=== PATIENT | male | born 2000 | race Caucasian/White ===

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

== ENCOUNTER 2024-09-28 09:13 | Emergency (ER) | payer MEDICARE, MEDICAID, SELFPAY ==
[2024-09-28] VITALS (10 sets, daily range): BP systolic 80–100; BP diastolic 47–72; PULSE 57–68; RESP 6; TEMP 36.4; O2SAT 83–97
--- NOTE | ~2024-09-28 | CT_ITS ---
EXAMINATION: CT brain wo con DATE: 09/28/2024 09:57 INDICATION: Seizure. Durant-Hirschhorn syndrome. TECHNIQUE: Computed tomography (CT) of the head was performed without intravenous contrast. The mA wa s adjusted according to patient size. Iterative reconstruction technique was employed. The dose-lengt h product was 605.33 mGy-cm. COMPARISON: Head CT 09/28/2005 FINDINGS: There is no intracranial hemorrhage, acute infarction, or abnormal intracranial mass lesion . The ventricles are normal in size. There is mucosal thickening in the paranasal sinuses. The orbits are normal. The mastoid air cells are normal. IMPRESSION: 1. Normal brain. Reviewed, dictated and finalized at location A. TRICIAN JOURNEYMAN WIREMAN IMPRESSION: 1. Normal brain.
--- NOTE | ~2024-09-28 | XR_ITS ---
EXAMINATION: XR chest 1V portable DATE: 09/28/2024 09:57 INDICATION: Seizures, vomiting and possible aspiration TECHNIQUE: frontal view of the chest was obtained. COMPARISON: Chest radiograph dated 10/01/2019 FINDINGS: Patient is rotated towards the right. Linear discoid atelectasis at the right midlung zone. Additiona l airspace opacities in the right lower lung zone which could represent additional atelectasis, aspir ation or pneumonia. No pulmonary edema, pleural effusion or pneumothorax. Heart size is normal conife r AP technique. Prominent gaseous distention of the stomach which occupies the majority of the visual ized upper abdomen. The ribs and clavicles are gracile. Median sternotomy wires. IMPRESSION: 1. Opacities in the right upper lung zone which could represent atelectasis, aspiration or pneumonia Reviewed, dictated and finalized at location A. ENTOLOGIST IMPRESSION: 1. Opacities in the right upper lung zone which could represent atelectasis, as piration or pneumonia
--- NOTE | 2024-09-28 09:16 | ED.SEIZURE ---
HPI - Seizure General Chief Complaint: Seizure Stated Complaint: seizure Source: EMS Mode of arrival: ambulatory Limitations: no limitations History of Present Illness HPI Narrative: 23-year-old male with a history of rogers-hischorn syndrome, nonverbal at baseline, history of seizures was brought in by EMS for recurrent seizures. The seizures started this morning and lasted for 3 minutes following which she received 10 mg of diazepam and 5 of Versed IV. Patient was noted to be seizing on arrival to the ED. patient is unresponsive to verbal commands. He is having intermittent clonic seizures with right gaze deviation. Discussed with [facility] ED and given 3 mg of IV Ativan along with 1500 mg of Keppra. after receiving the IV Ativan and Keppra the seizures have stopped. - Patient vomited initially at the start of seizures. The patient is oxygenating at 97% With an adequate respiratory rate. blood sugar was noted to be 104 and subsequently 160 complaint: seizure Onset (ago): minute(s) ( 20 minutes) Description of Episode: loss of consciousness and tonic-clonic movement Duration of episode: 25 -: minutes(s) Witnessed: Yes - by Bystander Trauma: No Seizure History: Yes Place: home Possible Precipitating Event: none Treatments prior to arrival: benzodiazepines and other ( Versed) Related Data Home Medications ?Medication ?Instructions ?Recorded ?Confirmed ?Last Taken ?Type clobazam 10 mg tablet mg 09/28/24 Unknown History clonidine HCl 0.1 mg tablet mg 09/28/24 Unknown History levetiracetam 500 mg tablet mg PO 09/28/24 Unknown History Allergies Allergy/AdvReac Type Severity Reaction Status Date / Time No Known Allergies Allergy Verified 09/28/24 11:08 Review of Systems Review of Systems: All systems reviewed & are unremarkable except as noted in HPI and below PMFSH Past Medical History Medical History (Updated 09/28/24 @ 11:11 by Dennis Ashton MD) Bilateral inguinal hernia History of repaired hypospadias Strabismus Hypospadias Atrial septal defect Seizures Rogers-Hirschhorn syndrome Surgical History Surgical History (Updated 10/01/19 @ 16:34 by Kana Staton) H/O bilateral inguinal hernia repair H/O congenital atrial septal defect (ASD) repair H/O eye surgery PRK surgery, strabismus correction Social History Social History (Updated 10/01/19 @ 16:46 by Kana Staton) Living arrangements: with family Gender identity (if verbalized by the patient): Male Exam Narrative: afebrile unresponsive to verbal commands. Const: General: ill appearing Nutritional Appearance: thin HENMT: Head: normal to inspection Face/Nose/Sinus: Normal external nose present Face and sinus: normal facial exam Mouth: Yes Normal oral and palatal mucosa present Eyes: Conjunctivae: conjunctivae normal Pupils: Equal, round and reactive pupils present ( Pupils are dilated and reacting to light.) Other: Initially gaze to the right Chest: Chest palpation & inspection: normal inspection of the chest Resp: Effort & Inspection: normal respiratory effort Auscultation: clear to auscultation bilaterally Cardio: Rate: regular rate Rhythm: regular rhythm GI: Auscultation: normal bowel sounds Skin: General skin exam: normal color Rashes: no rashes Wounds: no wounds Neuro: Other: unresponsive to verbal commands. Patient was initially noted to have bilateral clonic activity involving bilateral upper extremities. Patient was also noted to have tonic activity with gaze to the right. Extrem: General: normal to inspection Course Course Emergency Course: status epilepticus Vital Signs Vital signs: Vital Signs Pulse Rate 62 09/28/24 09:22 Pulse Oximetry 97 09/28/24 09:22 Temperature 36.4 C L 09/28/24 09:25 Pulse Rate 57 L 09/28/24 10:16 Respiratory Rate 6 L 09/28/24 09:25 Blood Pressure 100/72 09/28/24 10:16 Pulse Oximetry 92 09/28/24 10:16 Oxygen Delivery Non-Rebreather Mask 09/28/24 10:16 Oxygen Flow Rate 15 09/28/24 10:16 MDM - Seizure MDM Narrative Medical decision making narrative: status epilepticus Differential Diagnosis Differential diagnosis: Likely intractable seizure disorder Medical Records Attestation: I reviewed the patient's medical records. Lab Data 09/28/24 10:03 09/28/24 10:03 Labs: Lab Results 09/28/24 09/28/24 Range/Units 09:18 10:03 WBC 6.9 (4.8-10.8) K/mm3 RBC 4.50 L (4.70-6.10) M/mm3 Hgb 14.7 (14.0-18.0) g/dL Hct 43.6 (40.0-54.0) % MCV 96.9 (78.0-102.0) fL MCH 32.7 H (27.0-31.0) pg MCHC 33.7 (32-36) g/dL RDW 12.2 (11.6-14.4) % Plt Count 278 (150-420) K/mm3 MPV 11.1 H (8.7-11.0) fl Immature Gran % (Auto) 0.4 H (0.0-0.0) % Neut % (Auto) 79.6 H (50.0-70.0) % Lymph % (Auto) 13.3 L (18.0-42.0) % [place] % (Auto) 6.3 (2.0-11.0) % Eos % (Auto) 0.3 L (1.0-6.0) % Baso % (Auto) 0.1 (0.0-1.0) % Lymph # (Auto) 0.92 L (1.10-4.50) K/mm3 [place] # (Auto) 0.44 (0.10-0.90) K/mm3 Eos # (Auto) 0.02 (0.02-0.50) K/mm3 Baso # (Auto) 0.01 (0.00-0.10) K/mm3 Abs Immat Gran (auto) 0.03 H (0.00-0.00) K/mm3 Absolute Neuts (auto) 5.52 (1.70-7.20) K/mm3 Absolute Nucleated RBC 0.00 (0.00-0.00) K/mm3 Nucleated RBC % 0.0 (0-0.0) % Sodium 139 (136-145) mmol/L Potassium 3.8 (3.5-5.1) mmol/L Chloride 104 (98-108) mmol/L Carbon Dioxide 25 (21-32) mmol/L Anion Gap 10 (4-12) mmol/L BUN 20 H (7-18) mg/dL Creatinine 1.14 (0.70-1.30) mg/dL Estim Creat Clear Calc Not Reportable Estimated GFR > 60 (59 - ) Glucose 138 H (70-99) mg/dL POC Capillary Glucose 167 H (65-105) mg/dl Calculated Osmolality 292 (285-295) mOsm/kg Lactic Acid 3.5 H (0.4-2.0) mmol/L Calcium 8.5 (8.5-10.1) mg/dL Magnesium 1.7 L (1.8-2.4) mg/dL Total Bilirubin 0.4 (0.00-1.00) mg/dL AST 19 (15-37) U/L ALT 26 (16-63) U/L Alkaline Phosphatase 90 (46-116) U/L Total Protein 6.6 (6.4-8.2) g/dL Albumin 3.6 (3.4-5.0) g/dL Influenza A (RT-PCR) Negative (Negative) Influenza B (RT-PCR) Negative (Negative) RSV (RT-PCR) Negative (Negative) SARS-CoV-2 RNA (RT-PCR) Negative (Negative) Discharge Plan Discharge Clinical Impression: Status epilepticus Patient Disposition: Still a Patient Condition: Unstable Additional Instructions: [facility] Patient has been accepted by Patient Language: Yi Prescriptions: No Action clonidine HCl 0.1 mg tablet levetiracetam 500 mg tablet PO clobazam 10 mg tablet Follow-up/Referrals: UNKNOWN,DOCTOR [Non-Staff] - Time of Disposition: 11:11
[2024-09-28 09:20] LABS: Glucose Point of Care 167 mg/dl (65-105)
[2024-09-28] MEDS: MIDAZOLAM HCL (*CRX) 2 MG/2 ML VIAL 1 MG IV PUSH (09:26)
[2024-09-28] MEDS: levETIRAcetam 500MG/NACL 100ML 500 MG/100 ML BAG 400 MG ×3 (09:32→10:12)
[2024-09-28] MEDS: LORazepam INJ (*CRX) 2 MG/ML VIAL 3 MG IV PUSH (09:40)
--- OUTSIDE RECORDS SUMMARY | 2024-09-28 09:42 | XMS_ITS | Clinical Summary ---
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
--- OUTSIDE RECORDS SUMMARY | 2024-09-28 09:42 | XMS_ITS | Encounter Summary ---
Author Organization [facility] Address [address] [place] [address] Care Team Providers Care Staple Side Laster Name Role Phone Vineet Mitchell Primary Care Provider Lele Oquendo MD Unavailable Encounter Details Date Type Department Care Team (Late st Contact Info) Description 09/28/2024 Emergency [facility] [place] [address] Social History Tobacco Use Types Packs/Day Years Used Date Smoking Tobacco: Never Smokeless Tobacco: Never Alcohol Use Standard Drinks/Week Comments Defer 0 (1 standard drink = 0.6 oz pur e alcohol) PHQ-2 Answer Date Recorded PHQ-2 Total Score (If total score is 3 or more points, staff should administer the PHQ-9) 0 06/06/2024 Personal Safety Answer Date Recorded Have you ever been in or are you currently in a harmful physical or emotional relationship or is someone making you feel afraid or unsafe? Denies 05/13/2023 Sex and Gender Information Value Date Recorded Sex Assigned at Not on file Legal Sex Male 2:39 AM INCIDENT HANDLER Gender Identity Not on file Sexual Orientation Not on file documented as of this encounter Miscellaneous Notes * ED Pre-Arrival Note - Angle Zhou MD - 09/28/2024 9:27 AM INCIDENT HANDLER Pre-Arrival Note [place] 23 year old male, seizing Dr Hennessy Durant-hirschorn syndrome BIBEMS with 3 min seizure Having ongoing seizure at the OSH Generalized and rightward gaze Getting Keppra 500 mg -- recommend upping to 1500 mg Got ativan 1 mg Weight is 30 kg Seizing about 20-25 minutes; consistently for 10-15 minutes Family is declining additional work up. Is flying him here Requested that the OSH MD call back after Jose Alfredogina if he is still seizing. Neuro is getting on line to talk with the OSH MD as well. Angle Zhou MD DENT HANDLER documented in this encounter Plan of Treatment Not on file documented as of this encounter Visit Diagnoses Not on filedocumented in this encounter Care Teams Staple Side Laster Relationship Specialty Start Date End Date Vineet Mitchell PA 2 [facility] [address] [address] PCP - General Internal Medicine 12/15/22 Lele Oquendo MD [address] [facility] [address] [place] [address] Consulting Physician Neurology 06/06/24 documented as of this encounter
--- OUTSIDE RECORDS SUMMARY | 2024-09-28 09:42 | XMS_ITS | Encounter Summary ---
Author Organization [facility] Address [address] [place] [address] Phone Care Team Providers Care Soil Specialist Name Role Phone Vineet Mitchell Primary Care Provider Lele Oquendo MD Unavailable Reason for Visit * Reason Onset Date Comments Med Management 09/27/2024 Med Refill 09/27/2024 Encounter Details Date Type Department Care Team (Late st Contact Info) Description 09/27/2024 Telephone [facility] Epilepsy [address] [facility] [address] [place] [address] [place] [address] Lele Oquendo MD [address] [facility] [address] [place] [address] Med Management; Med Refill Social History Tobacco Use Types Packs/Day Years [...] on file Legal Sex Male 2:39 AM TRAVELING NURSE Gender Identity Not on file Sexual Orientation Not on file documented as of this encounter Miscellaneous Notes * Telephone Encounter - Shauna Melara CMA - 09/27/2024 1:[address] Moon Patients father, Sunil phoned regarding prescription refill request that previously was prescribed by Dr Anderson. Clonidine 0.1mg 1 1/2 tablets QHS Patient father advised to contact primary care for Senokot 8.6mg 2 tablets BID to request refill. Please advise on Clonidine. Should patient have PCP order as well? Shauna Ashraf ELING NURSE * Telephone Encounter - Ameena Thomas RN - 09/27/2024 1:34 PM TRAVELING NURSE Sunil LVM asking for refills on Timbo's prescriptions. Details of prescriptions and pharmacy were not left on VM. ELING NURSE documented in this encounter Plan of Treatment Not on file documented as of this encounter Visit Diagnoses Not on filedocumented in this encounter Care Teams Soil Specialist Relationship Specialty Start Date End Date Vineet Mitchell PA [address] [facility] [address] [place] [id number] PCP - General Internal Medicine 12/15/22 Lele Oquendo MD 1 [facility] [address] [place] [address] Consulting Physician Neurology 06/06/24 documented as of this encounter
--- OUTSIDE RECORDS SUMMARY | 2024-09-28 09:42 | XMS_ITS | Encounter Summary ---
Author Organization [facility] Address [address] [facility] [address] [place] [address] Phone Care Team Providers Care Shipyard Laborer Name Role Phone Vineet Mitchell Primary Care Provider Lele Oquendo MD Unavailable Encounter Details Date Type Department Care Team (Late st Contact Info) Description 09/26/2024 Telephone [facility] Pediatric Neurology [address] [facility] [address] [place] [phone] Aida Anderson MD PhD [address] [facility] [phone] [place], [place] [id number] Social History Tobacco Use Types Packs/Day Years [...] on file Legal Sex Male 2:39 AM LAUNDRY FOLDER Gender Identity Not on file Sexual Orientation Not on file documented as of this encounter Miscellaneous Notes * Telephone Encounter - Ellie Evans CMA - 09/26/2024 3:24 PM LAUNDRY FOLDER Scheduling team- Please schedule follow up appointment. Last seen 05/13/23- no refills until appointment is scheduled Ellie Ashraf DRY FOLDER documented in this encounter Plan of Treatment Not on file documented as of this encounter Visit Diagnoses Not on filedocumented in this encounter Care Teams Shipyard Laborer Relationship Specialty Start Date End Date Vineet Mitchell PA [address] [facility] [address] [place] [address] PCP - General Internal Medicine 12/15/22 Lele Oquendo MD [address] [facility] [address] [place] [address] Consulting Physician Neurology 06/06/24 documented as of this encounter
--- OUTSIDE RECORDS SUMMARY | 2024-09-28 09:42 | XMS_ITS | Clinical Summary ---
Author Organization [facility] Address [address] [place] [address] Care Team Providers Care Senior It Assistant Name Role Phone Paula Vineet HUDSON Primary Care Provider Lele Oquendo MD Unavailable Allergies Active Allergy Reactions Criticality Noted Date Comments Banana Vomiting Low Latex Rash Medium Morphine Sulfamethoxazole-Trimethoprim Other (See comments) Low Reaction: Medications cetirizine (ZyrTEC) 10 mg tablet Take 1 tablet (10 mg total) by mouth daily as needed for allergies 3 Active omeprazole (PriLOSEC) 20 mg capsule Take 1 capsule (20 mg total) by mouth daily 30 capsule 3 Active senna (SENOKOT) 8.6 mg tabletIndications: 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 (HCC) TAKE THREE TABLETS BY MOUTH TWICE A DAY 180 tablet 4 Active triamcinolone (KENALOG) 0.1 % cream Apply topically 2 (two) times a day As needed for itchy rash 60 g 1 4 Active cloBAZam (ONFI) 10 mg tablet TAKE HALF A TABLET BY MOUTH TWICE A DAY 90 tablet 1 4 Active cloNIDine (CATAPRES) 0.1 mg tablet TAKE ONE AND A HALF TABLETS BY MOUTH EVERY EVENING 45 tablet 4 Active clonazePAM (KlonoPIN) 0.[address] ONE TABLET ON THE TONGUE AND LET DISSOLVE TWICE A DAY NEEDED FOR SEIZURES 15 tablet 1 5 Active Active Problems Problem Noted Date Diagnosed Date Full incontinence-feces 11/18/2023 Continuous leakage of urine 11/18/2023 Intrinsic eczema 09/18/2023 Assessment & Plan (09/18/2023 1:04 PM LAND USE PLANNER): Chronic problem- Continue Vaseline therapy Recommend cotton clothing or cool wicking fabric Recommend Aveeno gel and Aveeno anti itch cream prn Encouraged to avoid harsh soaps, make sure skin is dry after bathing, avoid excessive hot water to skin Continue to monitor Plan to consult dermatology if no improvement Status epilepticus ([facility]) 07/25/2023 Assessment & Plan (09/18/2023 12:43 PM LAND USE PLANNER): Chronic problem-this is being managed by Neurology Follow-up with Dr. Royal as scheduled Continue current medication regimen as directed by Dr. 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 Royal as scheduled Continue current medication regimen as directed by Dr. 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 Royal as scheduled Continue current medication regimen as directed by Dr. Royal Ordered home health PT to eval and treat for ankle weakness and lower leg muscle tension Resolved Problems Problem Noted Date Diagnosed Date Resolved Date Encounters for administrative purpose 09/18/2023 01/29/2024 Assessment & Plan (09/18/2023 1:00 PM LAND USE PLANNER): Guardianship paperwork, handicap paperwork completed this visit Face to face completed for patient HH PT request as recommended by patient neurologist Acute respiratory failure 07/25/2023 Seizure 04/04/2023 01/29/2024 Assessment & Plan (09/18/2023 12:46 PM LAND USE PLANNER): Chronic problem-currently stable This is being managed by neurologist Continue Keppra 1500 mg b.i.d., diazepam 10 mg spray-use as directed Follow-up with neurologist as scheduled Continue to monitor Assessment & Plan (04/04/2023 10:29 PM CDT): A 22yM with a PMHx of Durant-hirschhorn (abnormal fascies, growth delay, intellectual disability, hypotonia, seizure), seizures on keppra 1250mg BID, ASD s/p repair, hypospadias, s/p repair, and bilateral inguinal hernias s/p repair who presents to the ED for status epilepticus. Out camping with family, 1x emesis post meal. Right hand -> Arm shaking with gaze deviation up. Progressed to generalized shaking. Requiring 2x IN Diazepam and 1x IV versed. Total time 1 hr. Physical exam on admission consistent with his baseline, non verbal, not interactive no focal deficits noticed. AF on admission but febrile on floor with VSS. CMP normal, CBC with a mild leukocytosis of 15.8. RVP negative. CXR wnl, no signs of aspiration. AXR significant for a stool ball. VBG 7.31/55/52. DDx: Provoked vs Unprovoked Focal seizure with secondary generalization. At this time with the patients fever and emesis he likely has an underlying viral infection the is provoking. Of note he was agitated in the ED and noted to respond well to zofran, concerning for underlying nausea. At this time the patient is clinically stable, tolerating soft foods. Plan: - Continue home Clonidine 0.15mg Nightly and Zyrtec Daily - Keppra 1250 BID - 1x Klonopin 0.5mg Overnight before transfer from ED - Ativan and Diastat for >5min seizures; Seizure precautions - Mechanical soft diet; POAL - Tylenol for Fevers PRN - Miralax daily for stool ball; monitor stools - Consider EEG/MRI at some point given focality of the seizures - Potential 2nd line med given 2 episodes of status 12/2022 and now 03/2023 Steroid-modified tinea infection 12/05/2015 06/06/2024 Cough 09/12/2015 10/24/2019 Encounters Date Type Department Care Team Description 09/28/2024 Telephone [facility] Pediatric Neurology [facility] [address] [place] [address] Abida Ruff MD 09/28/2024 Emergency [facility] [place] [address] 09/27/2024 Telephone [facility] Epilepsy [address] [facility] Advanced Medicine 6th [place] [address] [place] [address] Lele Oquendo MD Med Management; Med Refill 09/26/2024 Telephone [facility] Pediatric Neurology [facility] [address] [facility] [place] [address] Aida Anderson MD PhD 07/29/2024 Telephone [facility] Primary Care at [address] [place] [address] Vineet Mitchell PA from Last 3 Months Immunizations Name Administration Dates Next Due DT 05/11/2006,05/11/2002 DTaP, Unspecified 05/12/2001,03/03/2001,12/27/19 Hep A, Pediatric 04/12/2018,04/09/2017 Hep B, Adolescent or Pediatric 2000 Hep B, Unspecified 09/14/2001,2000 HiB 02/09/2002, 1,03/03/2001,12/26 IPV 05/11/2006, 2,03/03/2001,12/26 Influenza, Trivalent, Preser vative Free, Intramuscular 06/14/2013,05/29/2010 Influenza, Unspecified 06/06/2024(Deferr ed: Patient Refused),09/18/2023(Deferred: Patient Refused),07/06/2002 MMR 12/12/2005 MMRV 10/02/2006 Meningococcal Conjugate (Menveo) 04/09/2017,03/2012 Pneumococcal, Unspecified 03/03/2001 Tdap 02/10/2011 Varicella 11/03/2001 Surgical History Surgery Date Site/Laterality Comments ASD REPAIR HYPOSPADIAS CORRECTION INGUINAL HERNIA REPAIR STRABISMUS SURGERY Medical History Medical History Date Comments Seizures (HCC) follows neurolog y Nonverbal Durant-Hirschhorn syndrome Family History Relation Name Status Comments Father Alive Mother Alive Social History Tobacco Use Types Packs/Day Years Used Date Smoking Tobacco: Never Smokeless Tobacco: Never Tobacco Cessation:Counseling Given: Not Answered Alcohol Use Standard Drinks/Week Comments Defer 0 [...] on file Legal Sex Male 2:39 AM LAND USE PLANNER Gender Identity Not on file Sexual Orientation Not on file Obstetrics History Last Filed Vital Signs Vital Sign Reading Time Taken Comments Blood Pressure 92/52 06/06/2024 2:47 PM CDT kenneth ble Pulse 75 12/17/2023 4:21 PM CDT Temperature 37.1 ??C (98.7 ??F) 06/06/2024 2:47 PM CD T Respiratory Rate 18 12/17/2023 4:21 PM CDT Oxygen Saturation 99% 12/17/2023 4:21 PM CDT Inhaled Oxygen Concentration - - Weight 26.7 kg (58 lb 12.8 oz) 06/06/2024 2:47 P M CDT Height 134.5 cm (4' 4.95 ) 06/06/2024 2:47 PM CD T Body Mass Index 14.75 06/06/2024 2:47 PM CDT Plan of Treatment Health Maintenance Due Date Last Done Comments Hepatitis C Screening 2000 HPV Vaccines (1 - Male 3-dose series) 10/31/2015 Meningococcal B Vaccine (1 of 2 - Patient Seeks Protection) 2016 DTaP/Tdap/Td Vaccine (7 - Td or Tdap) 02/10/2021 02/10/2011, 05/11/2006, 05/11/2002, Additional history exists Influenza Vaccine (#1) 2024 3, 05/29/2010, 07/06/2002 Depression Screening 06/06/2025 06/06/2024, 09/18/2023, 12/15/2022 Regular Well Visit/Exam 18-64 06/06/2025 06/06/2024 Pneumococcal vaccine <65 Aged Out 03/03/2001 No longer eligible based on patient's age to complete this topic Varicella Vaccines Completed 10/02/2006, 11/03/2001 Insurance [employer] MEDICARE MEDICARE [facility] Advance Directives For more information, please contact: [phone] * Full Code (Latest Code Status on File) Date Activated Date Inactivated Comments 07/25/2023 1:07 PM 07/26/2023 4:37 PM * Full Code Date Activated Date Inactivated Comments 04/04/2023 9:13 PM 04/05/2023 7:07 PM Care Teams Senior It Assistant Relationship Specialty Start Date End Date Vineet Mitchell PA [address] [place] [address] PCP - General Internal Medicine 12/15/22 Lele Oquendo MD [address] [facility] [address] [place] [address] Consulting Physician Neurology 06/06/24
--- OUTSIDE RECORDS SUMMARY | 2024-09-28 09:43 | XMS_ITS | Encounter Summary ---
Author Organization [facility] Address [address] [facility] [address] [place] [address] Phone Care Team Providers Care Enterprise Security Architect Name Role Phone Vineet Mitchell Primary Care Provider Lele Oquendo MD Unavailable Encounter Details Date Type Department Care Team (Late st Contact Info) Description 09/28/2024 Telephone [facility] Pediatric Neurology [address] [place] [address] Abida Ruff MD [address] [facility] [phone] [place], [place] [id number] Social History Tobacco Use Types Packs/Day Years [...] on file Legal Sex Male 2:39 AM HEEL TRIMMER Gender Identity Not on file Sexual Orientation Not on file documented as of this encounter Plan of Treatment Not on file documented as of this encounter Visit Diagnoses Not on filedocumented in this encounter Care Teams Enterprise Security Architect Relationship Specialty Start Date End Date Vineet Mitchell PA [address] [place] [address] PCP - General Internal Medicine 12/15/22 Lele Oquendo MD [address] [facility] [address] [place] [address] Consulting Physician Neurology 06/06/24 documented as of this encounter
--- OUTSIDE RECORDS SUMMARY | 2024-09-28 09:43 | XMS_ITS | Referral Summary ---
Author Organization [facility] Address [address] [place] [address] Care Team Providers Care Census Taker Name Role Phone Vineet Mitchell Primary Care Provider Lele Oquendo MD Unavailable Encounters Date Type Department Care Team Description 09/28/2024 Telephone [facility] Pediatric Neurology [facility] [address] [place] [address] Abida Ruff MD 09/28/[address] [facility] [place] [address] 09/27/2024 Telephone [facility] Epilepsy [address] [facility] Advanced Medicine 6th [place] [address] [place] [address] Lele Oquendo MD Med Management; Med Refill 09/26/2024 Telephone [facility] Pediatric Neurology [facility] [address] [place] [address] Aida Anderson MD PhD 07/29/2024 Telephone [facility] Medical Group Primary Care at [address] [place] [address] Vineet Mitchell PA from Last 3 Months Allergies Active Allergy Reactions Criticality Noted Date [...] 09/18/2023 Assessment & Plan (09/18/2023 1:04 PM PURCHASING COORDINATOR): Chronic problem- Continue Vaseline therapy Recommend cotton clothing or cool wicking fabric Recommend Aveeno gel and Aveeno anti itch cream prn Encouraged to avoid harsh soaps, make sure skin is dry after bathing, avoid excessive hot water to skin Continue to monitor Plan to consult dermatology if no improvement Status epilepticus (CMS/HCC) 07/25/2023 Assessment & Plan (09/18/2023 12:43 PM PURCHASING COORDINATOR): Chronic problem-this is being managed by Neurology Follow-up with Dr. Royal as scheduled Continue current medication regimen as directed by Dr. 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 Royal as scheduled Continue current medication regimen as directed by Dr. Royal Ordered home health PT to eval and treat for ankle weakness and lower leg muscle tension Resolved Problems Problem Noted Date Diagnosed Date Resolved Date Encounters for administrative purpose 09/18/2023 01/29/2024 Assessment & Plan (09/18/2023 1:00 PM PURCHASING COORDINATOR): Guardianship paperwork, handicap paperwork completed this visit Face to face completed for patient HH PT request as recommended by patient neurologist Acute respiratory failure 07/25/2023 Seizure 04/04/2023 01/29/2024 Assessment & Plan (09/18/2023 12:46 PM PURCHASING COORDINATOR): Chronic problem-currently stable This is being managed [...] tinea infection 12/05/2015 06/06/2024 Cough 09/12/2015 10/24/2019 Immunizations Name Administration Dates Next Due DT 05/11/2006,05/11/2002 DTaP, Unspecified 05/12/2001,03/03/2001,12/27/19 Hep A, Pediatric 04/12/2018,04/09/2017 Hep B, Adolescent or Pediatric 2000 Hep B, Unspecified 09/14/2001,2000 HiB 02/09/2002, 1,03/03/2001,12/26 IPV 05/11/2006, 2,03/03/2001,12/26 Influenza, Trivalent, Preser vative Free, Intramuscular 06/14/2013,05/29/2010 Influenza, Unspecified 06/06/2024(Deferr ed: Patient Refused),09/18/2023(Deferred: Patient Refused),07/06/2002 MMR 12/12/2005 MMRV 10/02/2006 Meningococcal Conjugate (Menveo) 04/09/2017,03/2012 Pneumococcal, Unspecified 03/03/2001 Tdap 02/10/2011 Varicella 11/03/2001 Social History Tobacco Use Types Packs/Day Years [...] on file Legal Sex Male 2:39 AM PURCHASING COORDINATOR Gender Identity Not on file Sexual Orientation Not on file Last Filed Vital Signs Vital Sign Reading [...] 06/06/2024 2:47 PM CDT Plan of Treatment Not on file Insurance [facility] MEDICARE MEDICARE [employer] Advance Directives For more information, please contact: [phone] * Full Code (Latest Code Status on File) Date Activated Date Inactivated Comments 07/25/2023 1:07 PM 07/26/2023 4:37 PM * Full Code Date Activated Date Inactivated Comments 04/04/2023 9:13 PM 04/05/2023 7:07 PM Care Teams Census Taker Relationship Specialty Start Date End Date Vineet Mithcell PA [address] [place] [address] PCP - General Internal Medicine 12/15/22 Lele Oquendo MD [address] [facility] [address] [place] [address] Consulting Physician Neurology 06/06/24
[2024-09-28 10:09] LABS: Basophils Absolute Auto 0.01 K/mm3 (0.00-0.10); Basophils Percent Auto 0.1 % (0.0-1.0); Eosinophils Absolute Auto 0.02 K/mm3 (0.02-0.50); Eosinophils Percent Auto 0.3 % (1.0-6.0); Hematocrit 43.6 % (40.0-54.0); Hemoglobin 14.7 g/dL (14.0-18.0); Immature Granulocyte Absolute 0.03 K/mm3 (0.00-0.00); Immature Granulocyte Percent A 0.4 % (0.0-0.0); Lymphocytes Absolute Auto 0.92 K/mm3 (1.10-4.50); Lymphocytes Percent Auto 13.3 % (18.0-42.0); Mean Corpuscular HGB Conc 33.7 g/dL (32-36); Mean Corpuscular Hemoglobin 32.7 pg (27.0-31.0); Mean Corpuscular Volume 96.9 fL (78.0-102.0); Mean Platelet Volume 11.1 fl (8.7-11.0); Monocytes Absolute Auto 0.44 K/mm3 (0.10-0.90); Monocytes Percent Auto 6.3 % (2.0-11.0); Neutrophils Absolute Auto 5.52 K/mm3 (1.70-7.20); Neutrophils Percent Auto 79.6 % (50.0-70.0); Platelet Count Result 278 K/mm3 (150-420); Red Cell Distribution Width 12.2 % (11.6-14.4); White Blood Count 6.9 K/mm3 (4.8-10.8)
[2024-09-28 10:23] LABS: Alanine Aminotransferase 26 U/L (16-63); Albumin Level 3.6 g/dL (3.4-5.0); Alkaline Phosphatase 90 U/L (46-116); Anion Gap 10 mmol/L (4-12); Aspartate Amino Transferase 19 U/L (15-37); Bilirubin,Total 0.4 mg/dL (0.00-1.00); Blood Urea Nitrogen 20 mg/dL (7-18); Calcium 8.5 mg/dL (8.5-10.1); Carbon Dioxide 25 mmol/L (21-32); Chloride 104 mmol/L (98-108); Estimated Glomerular Filt Rate > 60; Glucose 138 mg/dL (70-99); Osmolality Calculated 292 mOsm/kg (285-295); Potassium 3.8 mmol/L (3.5-5.1); Sodium 139 mmol/L (136-145); Total Protein 6.6 g/dL (6.4-8.2)
[2024-09-28 10:25] LABS: Magnesium 1.7 mg/dL (1.8-2.4)
[2024-09-28 10:26] LABS: Lactic Acid Reflex 3.5 mmol/L (0.4-2.0)
--- OUTSIDE RECORDS SUMMARY | 2024-09-28 10:29 | XMS_ITS | Clinical Summary ---
Author Organization [facility] Address [address] [place] [address] Phone Care Team Providers Care Lead Athlete Name Role Phone Unavailable Primary Care Provider Unavailabl e Social History Tobacco Use Types Packs/Day Years Used Date Smoking Tobacco: Never Assessed Sex and Gender Information Value Date Recorded Sex Assigned at Not on file Legal Sex Male 5:18 AM MANAGER OCCUPATIONAL Gender Identity Not on file Sexual Orientation Not on file Plan of Treatment Health Maintenance Due Date Last Done Comments HPV VACCINES (1 - Male 3-dose series) 10/31/2015 DTAP/TDAP/TD VACCINES (1 - Tdap) 10/31/2019 HEPATITIS B VACCINES (1 of 3 - 19+ 3-dose series) 04/2020 INFLUENZA VACCINE (#1) 2024 06/14/2013 Insurance [employer] [place]
--- OUTSIDE RECORDS SUMMARY | 2024-09-28 10:29 | XMS_ITS | Encounter Summary ---
Author Organization [facility] Address [address] [place] [address] Phone Care Team Providers Care Technical Clerk Name Role Phone Vineet Mitchell Primary Care Provider Lele Oquendo MD Unavailable Reason for Visit * Reason Onset Date Comments Med Management 09/27/2024 Med Refill 09/27/2024 Encounter Details Date Type Department Care Team (Late st Contact Info) Description 09/27/2024 Telephone [facility] Epilepsy [address] [facility] 6th [place] [address] [place] [address] Lele Oqeundo MD [address] [facility] [address] [place] [address] Med Management; Med Refill Social [...] on file Legal Sex Male 2:39 AM MIDDLEWARE SYSTEMS ARCHITECT Gender Identity Not on file Sexual Orientation [...] have PCP order as well? Shauna Ashraf LEWARE SYSTEMS ARCHITECT * Telephone Encounter - Ameena Thomas RN - 09/27/2024 1:34 PM MIDDLEWARE SYSTEMS ARCHITECT Sunil LVM asking for refills on Timbo's prescriptions. Details of prescriptions and pharmacy were not left on VM. LEWARE SYSTEMS ARCHITECT documented in this encounter Plan of Treatment Not on file documented as of this encounter Visit Diagnoses Not on filedocumented in this encounter Care Teams Technical Clerk Relationship Specialty Start Date End Date Vineet Mitchell PA [address] [facility] [address] [place] [address] PCP - General Internal Medicine 12/15/22 Lele Oquendo MD [address] [facility] [address] [place] [address] Consulting Physician Neurology 06/06/24 documented as of this encounter
--- OUTSIDE RECORDS SUMMARY | 2024-09-28 10:29 | XMS_ITS | Encounter Summary ---
Author Organization [facility] Address [address] [facility] [address] [place] [address] Phone Care Team Providers Care Lot Associate Name Role Phone Vineet Mitchell Primary Care Provider Lele Oquendo MD Unavailable Encounter Details Date Type Department Care Team (Late st Contact Info) Description 09/26/2024 Telephone [facility] Pediatric Neurology [address] [facility] [address] [place] [address] Aida Anderson MD PhD [address] [facility] [phone] [place], [place] [phone] Social History Tobacco Use Types Packs/Day Years [...] on file Legal Sex Male 2:39 AM ENVIRONMENTAL SCIENTISTS Gender Identity Not on file Sexual Orientation Not on file documented as of this encounter Miscellaneous Notes * Telephone Encounter - Ellie Evans CMA - 09/28/2024 10:24 AM ENVIRONMENTAL SCIENTISTS Per scheduling team: Juanis, I spoke with dad and pt no longer sees Monica, he sees Red. Thank you. RONMENTAL SCIENTISTS * Telephone Encounter - Ellie Evans CMA - 09/26/2024 3:24 PM ENVIRONMENTAL SCIENTISTS Scheduling team- Please schedule follow up appointment. Last seen 05/13/23- no refills until appointment is scheduled Ellie Ashraf RONMENTAL SCIENTISTS documented in this encounter Plan of Treatment Not on file documented as of this encounter Visit Diagnoses Not on filedocumented in this encounter Care Teams Lot Associate Relationship Specialty Start Date End Date Vineet Mitchell PA [address] [facility] [place] [address] PCP - General Internal Medicine 12/15/22 Lele Oquendo MD [address] [facility] [address] [place] [address] Consulting Physician Neurology 06/06/24 documented as of this encounter
--- OUTSIDE RECORDS SUMMARY | 2024-09-28 10:29 | XMS_ITS | Encounter Summary ---
Author Organization [facility] Address [address] [facility] [address] [place] [address] Phone Care Team Providers Care Sales Representative Cash Registers Name Role Phone Vineet Mitchell Primary Care Provider Lele Oquendo MD Unavailable Encounter Details Date Type Department Care Team (Late st Contact Info) Description 09/28/2024 Telephone [facility] Pediatric Neurology [address] [facility] [address] [place] [phone] Abida Ruff MD [address] [facility] [phone] [place], [place] [id number] Social History Tobacco Use Types Packs/Day Years [...] on file Legal Sex Male 2:39 AM FUNERAL LIMOUSINE DRIVER Gender Identity Not on file Sexual Orientation Not on file documented as of this encounter Miscellaneous Notes * Telephone Encounter - Abida Ruff MD - 09/28/2024 9:40 AM FUNERAL LIMOUSINE DRIVER Telephone Note - [facility] Time of phone conversation: 09/28/24 9:40 AM Call from: Dr. Dennis Ashton Brief HPI: Timbo Arguello is a 23 y.o. male with history of Durant-Hirschhorn Syndrome and associated epilepsy, repaired ASD, intellectual disability, and non verbal communication presenting with status epilepsticus for at least 25 minutes at the outside hospital. Gave valtoco and versed. Gave 1mg ativan. Continued to have seizure activity. Giving another 3mg. Gave 1500mg keppra. Current weight 26.7 kg. Neuro meds: Current Outpatient Medications: cetirizine (ZyrTEC) 10 mg tablet, Take 1 tablet (10 mg total) by mouth daily as needed for allergies, Disp: , Rfl: cloBAZam (ONFI) 10 mg tablet, TAKE HALF A TABLET BY MOUTH TWICE A DAY, Disp: 90 tablet, Rfl: 1 clonazePAM (KlonoPIN) 0.25 mg disintegrating tablet, PLACE ONE TABLET ON THE TONGUE AND LET DISSOLVE TWICE A DAY NEEDED FOR SEIZURES, Disp: 15 tablet, Rfl: 1 cloNIDine (CATAPRES) 0.1 mg tablet, TAKE ONE AND A HALF TABLETS BY MOUTH EVERY EVENING, Disp: 45 tablet, Rfl: 0 diazePAM (Valtoco) 10 mg/spray (0.1 mL) spray,non-aerosol, Administer 10 mg into one nostril once as needed (Administer at onset of seizure. Second dose can be given at 5 minutes if seizure has not resolved.) for up to 1 dose, Disp: 2 each, Rfl: 2 levETIRAcetam (KEPPRA) 500 mg tablet, TAKE THREE TABLETS BY MOUTH TWICE A DAY, Disp: 180 tablet, Rfl: 0 omeprazole (PriLOSEC) 20 mg capsule, Take 1 capsule (20 mg total) by mouth daily, Disp: 30 capsule,Rfl: 0 polyethylene glycol (MIRALAX) 17 gram/dose bulk powder, Take 17 g by mouth 2 (two) times a day, Disp: 1020 g, Rfl: 5 senna (SENOKOT) 8.6 mg tablet, Take 2 tablets by mouth 2 (two) times a day, Disp: 120 tablet, Rfl: 11 triamcinolone (KENALOG) 0.1 % cream, Apply topically 2 (two) times a day As needed for itchy rash, Disp: 60 g, Rfl: 1 Discussion: Next line, should he continue to have seizure activity 20 minutes, would recommend 10mg/kg of phosphenytoin given over 20 minutes. Will plan to see him on arrival to [facility] [place] [facility]. Abida Ruff MD Child Neurology Resident PGY-4 RAL LIMOUSINE DRIVER documented in this encounter Plan of Treatment Not on file documented as of this encounter Visit Diagnoses Not on filedocumented in this encounter Care Teams Sales Representative Cash Registers Relationship Specialty Start Date End Date Vineet Mitchell PA [address] [facility] [address] [place] [id number] PCP - General Internal Medicine 12/15/22 Lele Oquendo MD 1 [facility] [address] [place] [address] Consulting Physician Neurology 06/06/24 documented as of this encounter
--- OUTSIDE RECORDS SUMMARY | 2024-09-28 10:29 | XMS_ITS | Referral Summary ---
Author Organization [facility] Address [address] [place] [address] Care Team Providers Care Athletic Director Name Role Phone Vineet Mitchell Primary Care Provider Lele Oquendo MD Unavailable Encounters Date Type Department Care Team Description 09/28/2024 Telephone [facility] Pediatric Neurology [facility] [address] [place] [phone] Abida Ruff MD 09/28/2024 Emergency [facility] [place] [address] 09/27/2024 Telephone [facility] Epilepsy [address] [facility] Advanced Medicine 6th [place] [address] [place] [address] Lele Oquendo MD Med Management; Med Refill 09/26/2024 Telephone [facility] Pediatric Neurology [facility] [address] [place] [address] Aida Anderson MD PhD 07/29/2024 Telephone [facility] Primary Care at [address] [place] [phone] Vineet Mitchell PA from Last 3 Months [...] 09/18/2023 Assessment & Plan (09/18/2023 1:04 PM TAG MARKER): Chronic problem- Continue Vaseline therapy Recommend cotton clothing or cool wicking fabric Recommend Aveeno gel and Aveeno anti itch cream prn Encouraged to avoid harsh soaps, make sure skin is dry after bathing, avoid excessive hot water to skin Continue to monitor Plan to consult dermatology if no improvement Status epilepticus (CMS/HCC) 07/25/2023 Assessment & Plan (09/18/2023 12:43 PM TAG MARKER): Chronic problem-this is being managed by Neurology Follow-up with Dr. Royal as scheduled Continue current medication regimen as directed by Dr. 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 Royal as scheduled Continue current medication regimen as directed by Dr. Royal Ordered home health PT to eval and treat for ankle weakness and lower leg muscle tension Resolved Problems Problem Noted Date Diagnosed Date Resolved Date Encounters for administrative purpose 09/18/2023 01/29/2024 Assessment & Plan (09/18/2023 1:00 PM TAG MARKER): Guardianship paperwork, handicap paperwork completed this visit Face to face completed for patient HH PT request as recommended by patient neurologist Acute respiratory failure 07/25/2023 Seizure 04/04/2023 01/29/2024 Assessment & Plan (09/18/2023 12:46 PM TAG MARKER): Chronic problem-currently stable This is being managed [...] on file Legal Sex Male 2:39 AM TAG MARKER Gender Identity Not on file Sexual Orientation [...] Plan of Treatment Not on file Insurance [facility] MEDICARE [facility] Address: [address] [address] [place] [address] MEDICARE [facility] Address: [address] [address] [place] [address] [employer] Advance Directives For more information, please contact: [phone] * Full Code (Latest Code Status on File) Date Activated Date Inactivated Comments 07/25/2023 1:07 PM 07/26/2023 4:37 PM * Full Code Date Activated Date Inactivated Comments 04/04/2023 9:13 PM 04/05/2023 7:07 PM Care Teams Athletic Director Relationship Specialty Start Date End Date Vineet Mitchell PA 2 [facility] [place] [address] PCP - General Internal Medicine 12/15/22 Lele Oquendo MD [address] [facility] [address] [address] [place] [address] Consulting Physician Neurology 06/06/24
--- OUTSIDE RECORDS SUMMARY | 2024-09-28 10:29 | XMS_ITS | Encounter Summary ---
Author Organization [facility] Address [address] [place] [address] Care Team Providers Care Monitor And Storage Bin Tender Name Role Phone Vineet Mitchell Primary Care Provider Lele Oquendo MD Unavailable Encounter Details Date Type Department Care Team (Late st Contact Info) Description 09/28/2024 Emergency [facility] [place] [address] Social History Tobacco Use Types Packs/Day Years [...] on file Legal Sex Male 2:39 AM BELT BUILDER Gender Identity Not on file Sexual Orientation Not on file documented as of this encounter Miscellaneous Notes * ED Pre-Arrival Note - Maricruz Amaya RN - 09/28/2024 9:59 AM BELT BUILDER Pre-Arrival Note- 23 yr old male with hx of seizures- seizure described as right eye deviation. Patient with 5 seizures in total since this morning. No fever reported. Home- Intranasal diazepam EMS- [place] Versed. En route. 20g LAC- labs obtained and pending. Keppra 1000mg Ativan 3mg Versed 1mg 80/40; 91/56 [id number] R22 Patient sat is 82% on NRB increased to 86% No advance airway in place at this time and no report of active seizure. Informed OSH to call back with update on patients status prior to leaving their ED Vivi declined the flight due to weather Coming by one way ground Maricruz Amaya, RN BUILDER BUILDER * ED Pre-Arrival Note - Angle Zhou MD - 09/28/2024 9:27 AM CST Pre-Arrival Note [place] 23 year old [...] that the OSH MD call back after Keppra if he is still seizing. Neuro is getting on line to talk with the OSH MD as well. Spoke with Neuro -- next steps would be fospheny 10 mg/kg if still seizing 25ish min after keppra Angle Zhou MD BUILDER BUILDER documented in this encounter Plan of Treatment Not on file documented as of this encounter Visit Diagnoses Not on filedocumented in this encounter Care Teams Monitor And Storage Bin Tender Relationship Specialty Start Date End Date Vineet Mitchell PA [address] [facility] [place] [address] PCP - General Internal Medicine 12/15/22 Lele Oquendo MD [address] [facility] [address] [place] [address] Consulting Physician Neurology 06/06/24 documented as of this encounter
--- OUTSIDE RECORDS SUMMARY | 2024-09-28 10:29 | XMS_ITS | Clinical Summary ---
Author Organization [facility] Address [address] [place] [address] Care Team Providers Care Toddler Teacher Name Role Phone Paula Vineet HUDSON Primary [...] 09/18/2023 Assessment & Plan (09/18/2023 1:04 PM POWERTRAIN CALIBRATION ENGINEER): Chronic problem- Continue Vaseline therapy Recommend cotton clothing or cool wicking fabric Recommend Aveeno gel and Aveeno anti itch cream prn Encouraged to avoid harsh soaps, make sure skin is dry after bathing, avoid excessive hot water to skin Continue to monitor Plan to consult dermatology if no improvement Status epilepticus ([facility]) 07/25/2023 Assessment & Plan (09/18/2023 12:43 PM POWERTRAIN CALIBRATION ENGINEER): Chronic problem-this is being managed by Neurology Follow-up with Dr. Royal as scheduled Continue current medication regimen as directed by Dr. 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 Royal as scheduled Continue current medication regimen as directed by Dr. Royal Ordered home health PT to eval and treat for ankle weakness and lower leg muscle tension Resolved Problems Problem Noted Date Diagnosed Date Resolved Date Encounters for administrative purpose 09/18/2023 01/29/2024 Assessment & Plan (09/18/2023 1:00 PM POWERTRAIN CALIBRATION ENGINEER): Guardianship paperwork, handicap paperwork completed this visit Face to face completed for patient HH PT request as recommended by patient neurologist Acute respiratory failure 07/25/2023 Seizure 04/04/2023 01/29/2024 Assessment & Plan (09/18/2023 12:46 PM POWERTRAIN CALIBRATION ENGINEER): Chronic problem-currently stable This is being managed [...] Type Department Care Team Description 09/28/2024 Telephone [facility] Pediatric Neurology [facility] [address] [place] [address] Abida Ruff MD 09/28/2024 Emergency [facility] [place] [address] 09/27/2024 Telephone [facility] Epilepsy [address] [facility] Advanced Medicine 6th [place] [address] [place] [address] Lele Oquendo MD Med Management; Med Refill 09/26/2024 Telephone [facility] Pediatric Neurology [facility] [address] [facility] [place] [address] Aida Anderson MD PhD 07/29/2024 Telephone [facility] Primary Care at [address] [place] [address] Vineet Mitchell PA from Last [...] on file Legal Sex Male 2:39 AM POWERTRAIN CALIBRATION ENGINEER Gender Identity Not on file Sexual Orientation [...] topic Varicella Vaccines Completed 10/02/2006, 11/03/2001 Insurance [employer] MEDICARE MEDICARE [facility] Advance Directives For more information, please contact: [phone] * Full Code (Latest Code Status on File) Date Activated Date Inactivated Comments 07/25/2023 1:07 PM 07/26/2023 4:37 PM * Full Code Date Activated Date Inactivated Comments 04/04/2023 9:13 PM 04/05/2023 7:07 PM Care Teams Toddler Teacher Relationship Specialty Start Date End Date Vineet Mitchell PA 2 [facility] [place] [place] [address] PCP - General Internal Medicine 12/15/22 Lele Oquendo MD [address] [facility] [address] [place] [address] Consulting Physician Neurology 06/06/24
[2024-09-28] MEDS: LACTATED RINGERS 1,000 ML 150 ML IV CONT (10:42)
[2024-09-28 10:45] LABS: SARS-CoV-2 RNA PCR Negative (Negative)
[2024-09-28 11:11] LABS: Influenza A QL RT-PCR Negative (Negative); Influenza B QL RT-PCR Negative (Negative); RSV RNA, RT-PCR Negative (Negative)
[2024-09-28 12:41] LABS: Reflex Lactic Acid Yes or No Add Lactic
== END 2024-09-28 10:48 | disposition designated cancer center or children's hospital (05) ==
PROVIDERS: Emergency Provider Internal Medicine Critical Care Medicine; PCP Physician Assistant
DX: G40.901 Epilepsy, unspecified, not intractable, with status epilepticus (principal); Q93.3 Deletion of short arm of chromosome 4; Z79.899 Other long term (current) drug therapy; Z20.822 Contact with and (suspected) exposure to COVID-19
CPT/HCPCS: 36415; 70450; 71045; 80053; 82948; 83605; 83735; 85025; 87637; 96365; 96375; 96376; 99285; J1953; J2060; J2250; J7120